=== PATIENT | male | born 1960 | race Caucasian/White ===

== ENCOUNTER 2016-12-30 11:14 | Emergency (ER) | payer MEDICAID, OTHER ==
[~2016-12-30] VITALS: Ht 188 cm; Wt 86.2 kg
[2016-12-30 11:58] LABS: BASOPHILS # (AUTO) 0.1 K/uL (0.0-8.0); BASOPHILS % (AUTO) 0.5 % (0.0-2.0); EOSINOPHILS # (AUTO) 0.1 K/uL (0.0-0.7); EOSINOPHILS % (AUTO) 1.3 % (0.0-7.0); HEMATOCRIT 41.9 % (40-50); HEMOGLOBIN 13.5 G/DL (14.0-18.0); LYMPHOCYTES # (AUTO) 1.1 K/UL (0.8-4.8); LYMPHOCYTES % (AUTO) 10.9 % (20.5-51.5); MEAN CORPUSCULAR HEMOGLOBIN 28.3 UUG (27.0-31.0); MEAN CORPUSCULAR HGB CONC 32 g/dL (32.0-37.0); MEAN CORPUSCULAR VOLUME 87.7 FL (82.0-92.0); MONOCYTES # (AUTO) 0.7 K/UL (0.1-1.30); MONOCYTES % (AUTO) 6.6 % (0.0-11.0); NEUTROPHILS # (AUTO) 8.5 K/UL (1.8-8.9); NEUTROPHILS % (AUTO) 80.7 % (38.5-71.5); PLATELET COUNT (AUTO) 290 K/UL (150-450); RED BLOOD CELL COUNT(AUTO) 4.78 MIL/UL (4.7-6.1); WHITE BLOOD COUNT (AUTO) 10.5 K/UL (4.0-11.2)
[2016-12-30 12:07] LABS: CREATININE 1.3 mg/dL (0.6-1.3); POTASSIUM 4.2 mmol/L (3.5-5.1)
[2016-12-30 12:12] LABS: BILIRUBIN,DIRECT 0.2 mg/dL (0.0-0.2); BILIRUBIN,TOTAL 0.7 mg/dL (0.2-1.0); TOTAL PROTEIN, SERUM 7.3 g/dL (6.4-8.2)
[2016-12-30 12:26] LABS: EOSINOPHILS % (MANUAL) 1 % (0-8); LYMPHOCYTES % (MANUAL) 13 % (20-40); MONOCYTES % (MANUAL) 3 % (2-10); NEUTROPHILS % (MANUAL) 83 % (42-75)
--- NOTE | 2016-12-30 13:42 | NUR ---
Patient discharged to home in stable conditon. Written and verbal after care instructions given. Patient verbalizes understanding of instructions.pt walks in steady gait. pt accompanied by
[2016-12-30 13:43] VITALS: BP 135/89
== END 2016-12-30 13:44 | disposition home or self-care (01) ==
LOC: EDBD 11:30 → ER 11:30
DX: J32.9 Chronic sinusitis, unspecified (principal); R51 Headache; I10 Essential (primary) hypertension; I25.2 Old myocardial infarction
CPT/HCPCS: 36415; 70450; 80048; 80076; 85025; 86140; 99285; A4663

== ENCOUNTER 2017-02-02 16:10 | Emergency (ER) | payer OTHER ==
[~2017-02-02] VITALS: Ht 188 cm; Wt 83.9 kg
--- NOTE | 2017-02-02 16:58 | NUR ---
DC AND FOLLOW UP INSTRUCTIONS GIVEN AND EXPLAINED TO PATIENT WHO STATES SHE UNDERSTANDS ALL INSTRUCTIONS.
--- NOTE | 2017-02-02 16:58 | NUR ---
Patient discharged to home in stable conditon. Written and verbal after care instructions given. Patient verbalizes understanding of instructions.
[2017-02-02 17:00] VITALS: BP 129/89
== END 2017-02-02 17:02 | disposition home or self-care (01) ==
LOC: ER 16:11
DX: J32.9 Chronic sinusitis, unspecified (principal); I10 Essential (primary) hypertension; I25.2 Old myocardial infarction

== ENCOUNTER 2017-07-10 11:38 | Emergency (ER) | payer OTHER ==
[~2017-07-10] VITALS: Ht 188 cm; Wt 83.9 kg
[2017-07-10] MEDS ORDERED: GLIM2TAB2 PO (11:56)
[2017-07-10] MEDS ORDERED: ATOR80TA PO (11:56)
[2017-07-10] MEDS ORDERED: EZET10TA27 PO (11:56)
[2017-07-10] MEDS ORDERED: LOSA25TA13 PO (11:56)
[2017-07-10] MEDS ORDERED: CARV3.122 PO (11:56)
--- NOTE | 2017-07-10 12:08 | NUR ---
Dr. Fajardo at bedside for MSE.
[2017-07-10] MEDS ORDERED: LIDOCAINE 4% TOPICAL 50 ML BOTTLE TP ONE (12:15)
[2017-07-10] MEDS ORDERED: SULFAMETH/TRIMETH 800/160 MG TABLET PO ONE (12:30)
[2017-07-10] MEDS ORDERED: LIDOCAINE 4% TOPICAL 50 ML BOTTLE ONE (12:31)
[2017-07-10] MEDS ORDERED: SULFAMETH/TRIMETH 800/160 MG TABLET ONE (12:49)
--- NOTE | 2017-07-10 12:55 | NUR ---
Dr Fajardo packed pt LT nares, no acute bleeding noted.
[2017-07-10 12:58] VITALS: BP 111/69
--- NOTE | 2017-07-10 12:59 | NUR ---
Patient discharged to home in stable conditon. Written and verbal after care instructions given. Patient verbalizes understanding of instructions.
== END 2017-07-10 12:59 | disposition home or self-care (01) ==
LOC: ER 11:43
DX: R04.0 Epistaxis (principal); E11.9 Type 2 diabetes mellitus without complications; E78.5 Hyperlipidemia, unspecified; I10 Essential (primary) hypertension; I25.10 Atherosclerotic heart disease of native coronary artery without angina pectoris
CPT/HCPCS: 30901; A4663

== ENCOUNTER 2017-07-12 08:51 | Emergency (ER) | payer OTHER ==
[~2017-07-12] VITALS: Ht 188 cm; Wt 83.9 kg
[~2017-07-12 08:51] MED LIST: ATOR80TA PO; CARV3.122 PO; EZET10TA27 PO; GLIM2TAB2 PO; LOSA25TA13 PO
--- NOTE | 2017-07-12 09:13 | NUR ---
Dr Magaña at the bedside for MSE.
--- NOTE | 2017-07-12 09:22 | NUR ---
Dr Magaña removed packing from nares. No bleeding noted.
[2017-07-12 09:30] VITALS: BP 101/65
--- NOTE | 2017-07-12 09:36 | NUR ---
Patient discharged to home in stable conditon. Written and verbal after care instructions given. Patient verbalizes understanding of instructions.
== END 2017-07-12 09:36 | disposition home or self-care (01) ==
LOC: ER 08:51
DX: Z48.00 Encounter for change or removal of nonsurgical wound dressing (principal); R04.0 Epistaxis; E78.5 Hyperlipidemia, unspecified; E11.9 Type 2 diabetes mellitus without complications; I10 Essential (primary) hypertension
CPT/HCPCS: 99281; A4663

== ENCOUNTER 2017-11-29 21:04 | Emergency (ER) | payer OTHER ==
[~2017-11-29] VITALS: Ht 188 cm; Wt 86.2 kg
--- NOTE | 2017-11-29 21:22 | NUR ---
Dr. Hussein at bedside for MSE.
--- NOTE | 2017-11-29 21:31 | NUR ---
Patient discharged to home in stable conditon. Written and verbal after care instructions given. Patient verbalizes understanding of instructions. Patient ambulated out of ER with steady gait, no acute signs of distress, VSS, all belongings taken.
[2017-11-29 21:32] VITALS: BP 152/82
== END 2017-11-29 21:36 | disposition home or self-care (01) ==
LOC: ER 21:06
DX: J32.9 Chronic sinusitis, unspecified (principal); I10 Essential (primary) hypertension; E78.5 Hyperlipidemia, unspecified; E11.9 Type 2 diabetes mellitus without complications; Z79.899 Other long term (current) drug therapy
CPT/HCPCS: 99283; A4663